=== PATIENT | male | born 1980 | race Caucasian/White ===

== ENCOUNTER 2020-08-28 05:32 | Outpatient (RCR) | payer OTHER ==
[~2020-08-28] VITALS: Ht 177.8 cm; Wt 100.0 kg
[~2020-08-28 05:32] MED LIST: ROSU10TA22 PO
== END 2020-08-28 09:38 | disposition home or self-care (01) ==
LOC: PREOP 05:32
PROVIDERS: ATTEND Surgery
DX: Z01.812 Encounter for preprocedural laboratory examination (principal); R22.1 Localized swelling, mass and lump, neck; Z20.828 Contact with and (suspected) exposure to other viral communicable diseases
CPT/HCPCS: 87635

== ENCOUNTER 2020-08-30 06:14 | Day surgery (SDC) | payer OTHER ==
[2020-08-30] VITALS (9 sets, daily range): BP systolic 111–133; BP diastolic 60–86
[~2020-08-30] VITALS: Ht 177.8 cm; Wt 100.0 kg
[2020-08-30] MEDS ORDERED: LACTATED RINGERS 1,000 ML IV PRN (06:26)
[2020-08-30] MEDS ORDERED: ceFAZolin 2 GM IV Premixed 50 ML IV ONE (06:30)
[2020-08-30] MEDS ORDERED: LIDOCAINE PF 2% 5 ML (XYLOCAINE) VIAL ONE (07:03)
[2020-08-30] MEDS ORDERED: ROCURONIUM 10 MG/ML 5 ML SYRINGE IV ONE (07:03)
[2020-08-30] MEDS ORDERED: SUCCINYLCHOLINE INJ 100 MG/5 ML SYR/VIAL ONE (07:03)
[2020-08-30] MEDS ORDERED: ONDANSETRON 4 MG/2 ML (SDV) Z0FRAN ONE (07:03)
[2020-08-30] MEDS ORDERED: SEVOFLURANE (ULTANE) 15 ML INHAL SOLN ONE ×4 (07:03→09:05)
[2020-08-30] MEDS ORDERED: fentaNYL INJECTION 100 MCG/2 ML AMP ONE (07:04)
[2020-08-30] MEDS ORDERED: MIDAZOLAM 2 MG/2 ML (VERSED) VIAL ONE (07:04)
[2020-08-30] MEDS ORDERED: LIDOCAINE/EPI 1%-1:100,000 (XYLOCAINE) 20ML ONE (07:11)
--- NOTE | 2020-08-30 08:05 | Progress Note-Pre Operative ---
Pre-Operative Progress Note H&P Reviewed The H&P was reviewed, patient examined and no changes noted. Date Seen by Provider: Aug 30, 2020 Time Seen by Provider: 08:05 Date H&P Reviewed: Aug 30, 2020 Time H&P Reviewed: 08:05 Pre-Operative Diagnosis: neck mass KATHERINE HERRERA DO Aug 30, 2020 08:05
[2020-08-30] MEDS ORDERED: NEOSTIGMINE 3 MG/3 ML VIAL ONE (08:50)
[2020-08-30] MEDS ORDERED: GLYCOPYRROLATE 0.2 MG/ML (ROBINUL) 2 ML VIAL ONE (08:50)
--- NOTE | 2020-08-30 08:58 | Progress Note-Post Operative ---
Post-Operative Progess Note Surgeon (s)/Bead Wire Taper (s) Surgeon KATHERINE HERRERA DO Bead Wire Taper: na Pre-Operative Diagnosis neck mass Post-Operative Diagnosis same Procedure & Operative Findings Date of Procedure 08/30/20 Procedure Performed/Findings excision posterior neck mass 3.5x2.5cm Anesthesia Type gen Estimated Blood Loss Estimated blood loss (mL): min Specimens/Packing Specimens Removed post neck mass, subcutaneous layer KATHERINE HERRERA DO Aug 30, 2020 08:58
[2020-08-30] MEDS ORDERED: HYDR-4226 PO (08:59)
--- NOTE | 2020-08-30 09:00 | Discharge Inst-Simple/Standard ---
Discharge Inst-Standard Discharge Medications New, Converted or Re-Newed RX: RX on Chart Patient Instructions/Follow Up Plan of Care/Instructions/FU: 12-14 days Aba (sutures) Activity as Tolerated: No (No strenuous activity) Discharge Diet: Regular Diet Other Inst to Patient Follow up Appt: Make appointment for 2 week. Instructions: No lifting greater than 10 pounds. No strenuous activity. May shower in 24 hours, no tub bath or soaking. Use incentive spirometer at home as directed. No Smoking Skin/Wound Care: You have sutures keep area clean and dry. You will have them looked at in 12-[address] Troncoso's office. Symptoms to Report: Appetite Changes, Extremity Discoloration, Numbness/Tingling, Swelling Increased, Bleeding Excessive, Eyesight Changes, Pain Increased, Urine Color Change, Constipation(Persistent), Fever over 101 degree F, Pain/Pressure in chest, Urinating Difficulty, Cough Up/Vomit Blood, Heart Beat Irreg/Pounding, Pain/Pressure in jaw, Vaginal Bleeding Increase, Cramps in feet or legs, Lightheadedness, Pain/Pressure in shoulder, Diarrhea(Persistent), Memory Changes Suddenly, Questions/Concerns, Weight gain consecutive days, Dizziness/Fainting, Nausea/Vomiting, Shortness of Breath, Weight gain over 2 pounds If questions or concerns contact your physician Or seek help at emergency department. KATHERINE TRONCOSO DO Aug 30, 2020 09:00
[2020-08-30] MEDS ORDERED: ONDANSETRON 4 MG/2 ML (SDV) Z0FRAN IVP PRN (09:15)
[2020-08-30] MEDS ORDERED: morphine INJ 10 MG/ML 1ML (SYR OR VIAL) IVP ONE (09:15)
--- NOTE | 2020-08-30 11:12 | Anesthesia-General Post-Op ---
General Patient Condition Mental Status/LOC: Same as Preop Cardiovascular: Satisfactory Nausea/Vomiting: Absent Respiratory: Satisfactory Pain: Controlled Complications: Absent Post Op Complications Complications None Follow Up Care/Instructions Patient Instructions None needed. Anesthesia/Patient Condition Patient Condition Patient is doing well, no complaints, stable vital signs, no apparent adverse anesthesia problems. No complications reported per nursing. JACQUELINE AGUIRRE CRNA Aug 30, 2020 11:12
--- NOTE | 2020-08-30 16:25 | OPERATIVE REPORT ---
DATE OF SERVICE: 08/30/2020 PREOPERATIVE DIAGNOSIS: Posterior neck mass. POSTOPERATIVE DIAGNOSIS: Posterior neck mass. PROCEDURE: Excision of posterior neck mass, subcutaneous layer, 3.5 x 2.5 cm. SURGEON: Katherine Troncoso DO ANESTHESIA: General. ESTIMATED BLOOD LOSS: Minimal. COMPLICATIONS: None. INDICATIONS: The patient is a 39-year-old male with a neck mass that he wishes to have it removed. He understands risks and benefits of procedure and wished to proceed with procedure. Consent was signed in the chart. DESCRIPTION OF PROCEDURE: The patient was taken to the operating suite. He was prepped and draped in sterile fashion. Timeout was performed. He is in the right lateral recumbent position. Local anesthetic was infiltrated around the mass. A 15 blade scalpel was used to make a skin incision and cautery used to dissect around the mass. There was a lot of fibrotic and chronic changes present around the mass. Once removed, the wound was irrigated with copious amounts of irrigation. Hemostasis was achieved. The skin was then able to be closed with 3-0 Prolene in simple interrupted fashion. The patient tolerated procedure well without any complications and taken to recovery room in stable condition. Job ID: [id number] DocumentID: [id number] Dictated Date: 08/30/2020 09:02:26 Vapor Coater Date: 08/30/2020 16:23:45 Dictated By: KATHERINE TRONCOSO DO
== END 2020-08-30 11:00 ==
LOC: SDC 06:14
PROVIDERS: ATTEND Surgery
DX: D17.0 Benign lipomatous neoplasm of skin and subcutaneous tissue of head, face and neck (principal); Z83.3 Family history of diabetes mellitus; Z80.9 Family history of malignant neoplasm, unspecified; Z82.49 Family history of ischemic heart disease and other diseases of the circulatory system
CPT/HCPCS: 87081